=== PATIENT | female | born 1990 | race Caucasian/White ===

== ENCOUNTER 2020-05-13 09:36 | Outpatient (CLI) | payer OTHER ==
--- NOTE | 2020-05-13 10:24 | ULT ---
TRANSABDOMINAL TRANSVAGINAL PELVIC ULTRASOUND DATE:: 05/13/2020 12:00 AM CLINICAL HISTORY: History of adnexal mass and ectopic . COMPARISON: None. TECHNIQUE: Grayscale, color Doppler and spectral Doppler images were obtained of the pelvis see a tra nsabdominal and transvaginal approach FINDINGS: UTERUS: Size: 9.2 x 5.2 x 4.5 centimeters. Mass: None Cervix: Within normal limits Endometrial Thickness: 4.9 mm. No intrauterine gestational sac identified. OVARIES: Size: Right measures 2.7 x 1.6 x 1.7 cm; Left measures 2.7 x 2.1 x 1.4 cm Mass: None. Flow: Normal CUL-DE-SAC: No free fluid IMPRESSION: No acute sonographic abnormality demonstrated. No sonographic evidence suspicious for ectopic pregnan cy. No suspicious adnexal lesion identified.
== END 2020-05-13 09:37 | disposition home or self-care (01) ==
LOC: BICULT 09:36
PROVIDERS: ATTEND Internal Medicine Hospice and Palliative Medicine
DX: N83.8 Other noninflammatory disorders of ovary, fallopian tube and broad ligament (principal)
CPT/HCPCS: 76856